=== PATIENT | female | born 1990 | race Two or more races ===

== ENCOUNTER → 2019-11-28 | Outpatient (CLI) | payer OTHER ==
[~2019-11-28] MED LIST: IRON325 MG PO; PRENATAL TABLE1 EAC2 PO
== END | disposition home or self-care (01) ==
LOC: PRENATAL 10:00
PROVIDERS: ATTEND Obstetrics & Gynecology Maternal & Fetal Medicine
DX: O35.0XX1 Maternal care for (suspected) central nervous system malformation in fetus, fetus 1 (principal); O35.3XX1 Maternal care for (suspected) damage to fetus from viral disease in mother, fetus 1; O98.513 Other viral diseases complicating pregnancy, third trimester; O34.211 Maternal care for low transverse scar from previous cesarean delivery; O99.89 Other specified diseases and conditions complicating pregnancy, childbirth and the puerperium; Z36.89 Encounter for other specified antenatal screening; Z3A.34 34 weeks gestation of pregnancy

== ENCOUNTER 2019-12-01 14:56 | Inpatient (IN) | payer OTHER ==
[~2019-12-01] VITALS: Ht 157.5 cm; Wt 67.1 kg
[2019-12-01] MEDS ORDERED: PRENATAL TABLE1 EAC2 PO (15:10)
[2019-12-01] MEDS ORDERED: IRON325 MG PO (15:11)
== END 2019-12-03 16:52 | DRG 833 ==
LOC: OB/GYN 14:56 → LDR 14:56 → OB/GYN 12-02 09:29
PROVIDERS: ADMIT Obstetrics & Gynecology; ATTEND Obstetrics & Gynecology
PROC: 4A0HXFZ Measurement of Products of Conception, Cardiac Rhythm, External Approach (ICD-10-PCS; principal; 2019-12-01)
DX: O14.93 Unspecified pre-eclampsia, third trimester (principal); Z3A.34 34 weeks gestation of pregnancy; Z20.828 Contact with and (suspected) exposure to other viral communicable diseases

== ENCOUNTER 2019-12-05 11:55 | Inpatient (IN) | payer OTHER ==
[~2019-12-05] VITALS: Ht 157.5 cm; Wt 2.3 kg
== END 2019-12-10 09:27 | disposition home or self-care (01) | DRG 785 ==
LOC: LDR 11:55 → MEDJ 12-07 10:05 → LDR 12-07 10:10 → O/R 12-07 13:35 → OB/GYN 12-07 15:23
PROVIDERS: ADMIT Obstetrics & Gynecology; ATTEND Obstetrics & Gynecology
PROC: 4A0HXFZ Measurement of Products of Conception, Cardiac Rhythm, External Approach (ICD-10-PCS; 2019-12-05)
PROC: 0UB70ZZ Excision of Bilateral Fallopian Tubes, Open Approach (ICD-10-PCS; 2019-12-07)
PROC: 10D00Z1 Extraction of Products of Conception, Low, Open Approach (ICD-10-PCS; principal; 2019-12-07 11:00)
DX: O60.14X0 Preterm labor third trimester with preterm delivery third trimester, not applicable or unspecified (principal); O14.14 Severe pre-eclampsia complicating childbirth; O34.211 Maternal care for low transverse scar from previous cesarean delivery; Z3A.36 36 weeks gestation of pregnancy; Z37.0 Single live birth; Z30.2 Encounter for sterilization